=== PATIENT | female | born 1990 | race Two or more races ===

== ENCOUNTER → 2018-02-10 | Outpatient (CLI) | payer MEDICAID ==
[2018-02-10 12:07] LABS: BACTERIA (WET MOUNT) 3+ BACTERIA SEEN; EPITHELIALS (WET MOUNT) 4+ EPITHELIALS SEEN; RBCS (WET MOUNT) NO RBCS SEEN; T.VAGINALIS (WET MOUNT) NO TRICHOMONAS SEEN; WBCS (WET MOUNT) FEW WBCS SEEN; YEAST (WET MOUNT) NO YEAST SEEN
== END ==
LOC: LAB 12:03
PROVIDERS: ATTEND Nurse Practitioner Family
DX: N94.9 Unspecified condition associated with female genital organs and menstrual cycle (principal); R30.0 Dysuria; Z20.2 Contact with and (suspected) exposure to infections with a predominantly sexual mode of transmission
CPT/HCPCS: 87086; 87210

== ENCOUNTER → 2018-12-26 | Outpatient (CLI) | payer MEDICAID ==
[2018-12-26 18:46] LABS: RBCS (WET MOUNT) 4+ RBCS SEEN; T.VAGINALIS (WET MOUNT) NO TRICHOMONAS SEEN; WBCS (WET MOUNT) RARE WBCS SEEN; YEAST (WET MOUNT) NO YEAST SEEN
[2018-12-26 19:56] LABS: CHLAM PCR NOT DETECTED (NOT DETECT)
== END ==
LOC: LAB 17:51
PROVIDERS: ATTEND Nurse Practitioner Acute Care
DX: N89.8 Other specified noninflammatory disorders of vagina (principal); R30.0 Dysuria
CPT/HCPCS: 87086; 87210; 87491; 87591

== ENCOUNTER → 2019-02-16 | Outpatient (CLI) | payer BC, MEDICAID ==
[2019-02-16 20:00] LABS: T.VAGINALIS (WET MOUNT) NO TRICHOMONAS SEEN; WBCS (WET MOUNT) 3+ WBCS SEEN; YEAST (WET MOUNT) NO YEAST SEEN
[2019-02-16 20:01] LABS: BACTERIA (WET MOUNT) 4+ BACTERIA SEEN; EPITHELIALS (WET MOUNT) 4+ EPITHELIALS SEEN; RBCS (WET MOUNT) 2+ RBCS SEEN
[2019-02-16 21:16] LABS: CHLAM PCR NOT DETECTED (NOT DETECT)
== END ==
LOC: LAB 19:39
PROVIDERS: ATTEND Nurse Practitioner Acute Care
DX: N89.8 Other specified noninflammatory disorders of vagina (principal)
CPT/HCPCS: 87210; 87491; 87591